=== PATIENT | female | born 1960 | race Caucasian/White ===

== ENCOUNTER 2017-06-14 09:48 | Day surgery (SDC) | payer BC, OTHER ==
[~2017-06-14 09:48] MED LIST: RINGER'S SOLUTION,LACTATED 1,000 ML IV PRN
[2017-06-14] MEDS ORDERED: RINGER'S SOLUTION,LACTATED 1,000 ML IV ONE (10:29)
[2017-06-14] MEDS ORDERED: RINGER'S SOLUTION,LACTATED 1,000 ML IV PRN (13:12)
[2017-06-14 13:59] VITALS: BP 134/77
--- NOTE | 2017-06-14 18:16 | OR ---
Operative Report - Dictated Report Narrative: OPERATIVE REPORT DATE OF OPERATION: 06/14/2017 PREOPERATIVE DIAGNOSIS: Family history of colon cancer. No recent dedicated colon studies POSTOPERATIVE DIAGNOSIS: Normal colonoscopy OPERATION: Colonoscopy SURGEON: Joo Diaz MD ANESTHESIA: CATHERINE Calvo CRNA INDICATIONS FOR PROCEDURE: The patient is a 57-year-old female referred by Abi BILLY. The patient had a normal colonoscopy in 2006. Her father had colon cancer around the age of 60. She generally moves her bowels every 2 days. FINDINGS: Very capacious redundant colon, difficult exam, otherwise normal exam to the cecum NARRATIVE OF PROCEDURE: The patient was identified in the holding area, and prior to the administration of anesthetic, a multidisciplinary timeout was observed. With the patient in the left lateral position and after the administration of intravenous sedation, the perineum was inspected. There was no evidence of pilonidal disease or skin breakdown. The external appearance of the anus was normal. Sphincter tone was good. The flexible fiberoptic colonoscope was inserted into the rectum which was insufflated with air. The rectal mucosa and submucosal vascular pattern appeared normal, the prep was seen to be complete. The scope was advanced through the sigmoid colon, up the descending colon, and around the splenic flexure where the triangular haustral architecture of the transverse colon was seen. The scope was advanced across the transverse colon, around the hepatic flexure to the cecum, where the confluence of tenia and the ileocecal valve were identified. The mucosa at this level appeared normal. The scope was then slowly withdrawn in a circular fashion so that all aspects of colonic mucosa were inspected. The colon was extremely capacious and redundant in character, requiring the use of gentle external manual compression on the abdomen in standard reduction maneuvers to reach the cecum. The haustral architecture appeared well preserved throughout with no evidence of external compression. The mucosa and submucosal vascular pattern appeared normal, specifically there was no gross evidence to suggest colitis or inflammatory bowel disease and no AV malformations were seen. No diverticulosis was demonstrated. No polyps were encountered. The scope was gradually withdrawn to the level of the rectum. As much insufflated air as possible was removed. The scope was withdrawn from the patient and the procedure terminated. The patient tolerated the anesthetic and procedure well without complication and was transferred back to the ambulatory surgery area awake and in stable condition. The patient remained stable throughout a period of postoperative observation. She denied abdominal discomfort, was able to tolerate by mouth intake, and was up without assistance. I shared the operative findings with the patient and she was given copies of the photographs which appear in the medical record. She was discharged home with instructions not to engage in hazardous activity today , but may resume normal activity tomorrow, and advance diet as tolerated. She is to continue those medications as listed in the history and physical exam. RECOMMENDATION: Having not had polyps on 2 exams, she might qualify as normal risk individual with surveillance interval of 10 years depending upon findings and symptoms. Reviewed and electronically signed
== END 2017-06-14 09:49 | disposition home or self-care (01) ==
LOC: AMB 09:48
PROVIDERS: ATTEND Surgery
PROC: 0DJD8ZZ Inspection of Lower Intestinal Tract, Via Natural or Artificial Opening Endoscopic (ICD-10-PCS; principal; 2017-06-14 11:00)
DX: Z12.11 Encounter for screening for malignant neoplasm of colon (principal); K21.9 Gastro-esophageal reflux disease without esophagitis; E78.5 Hyperlipidemia, unspecified; F32.9 Major depressive disorder, single episode, unspecified; Z87.891 Personal history of nicotine dependence; Z68.36 Body mass index [BMI] 36.0-36.9, adult; Z80.0 Family history of malignant neoplasm of digestive organs